=== PATIENT | male | born 1975 | race Caucasian/White ===

== ENCOUNTER → 2021-04-04 | Outpatient (CLI) | payer BC ==
--- NOTE | 2021-04-04 09:35 | US ---
EXAMINATION TYPE: US liver DATE OF EXAM: 04/04/2021 COMPARISON: NONE CLINICAL HISTORY: R74.01 elevated liver enzymes. Elevated liver enzymes EXAM MEASUREMENTS: Liver Length: 18.2 cm Gallbladder Wall: .2 cm CBD: .4 cm Right Kidney: 10.2 x 4.8 x 5.0 cm Pancreas: Obscured by bowel gas Liver: Increased attenuation suggestive of diffuse fatty infiltration. No discrete hepatic mass or intrahepatic biliary dilatation. Gallbladder: No stones seen Evidence for sonographic Reyna's sign: No CBD: wnl Right Kidney: No hydronephrosis or masses seen IMPRESSION: 1. Diffuse hepatic steatosis. 2. The pancreas is obscured/not visualized by overlying bowel gas.
== END | disposition home or self-care (01) ==
LOC: RADUSWWP 08:11
PROVIDERS: ATTEND Family Medicine
DX: K76.0 Fatty (change of) liver, not elsewhere classified (principal)
CPT/HCPCS: 76705